=== PATIENT | female | born 1970 | race Asian ===

== ENCOUNTER → 2016-09-28 | Outpatient (CLI) | payer BC, OTHER ==
[~2016-09-28] MED LIST: None per pt
[2016-09-28 14:16] LABS: HEMOGLOBIN 15.1 g/dL (11.7-16.4)
[2016-09-28 14:22] LABS: ASPARTATE AMINO TRANSFERASE 29 U/L (15-37); BLOOD UREA NITROGEN 9 mg/dL (7-18)
== END | disposition home or self-care (01) ==
LOC: STAR 13:17
PROVIDERS: ATTEND Surgery
DX: Z01.818 Encounter for other preprocedural examination (principal)
CPT/HCPCS: 36415; 80053; 83690; 84703; 85025; 85610; 93005

== ENCOUNTER 2016-10-11 06:25 | Day surgery (SDC) | payer BC ==
[2016-09-28 13:41] VITALS: BP 123/80
[~2016-10-11] VITALS: Ht 160 cm; Wt 55.0 kg
[2016-10-11] MEDS ORDERED: BUPIVACAINE/PF-EPI 0.25% 1:200K ONE (06:43)
[2016-10-11] MEDS ORDERED: LIDOCAINE 1%, 2ML ONE (06:52)
[2016-10-11 07:08] LABS: HCG UR OBC PASS
[2016-10-11] MEDS ORDERED: LACTATED RINGERS 1,000 ML IV SCH (07:15)
[2016-10-11] MEDS ORDERED: MIDAZOLAM 1 MG/ML, 2ML ONE (07:29)
[2016-10-11] MEDS ORDERED: FENTANYL PF 250 MCG/5ML ONE (07:29)
[2016-10-11] MEDS ORDERED: LIDOCAINE 1%, 2ML SQ PRN (07:30)
[2016-10-11] MEDS ORDERED: MIDAZOLAM 1 MG/ML, 2ML IV PRN (08:00)
[2016-10-11] MEDS ORDERED: MEPERIDINE/PF 25MG/0.5ML IVPush PRN (08:00)
[2016-10-11] MEDS ORDERED: hydrALAzine 20 MG/ML, 1ML IV PRN (08:00)
[2016-10-11] MEDS ORDERED: PROMETHAZINE 25 MG/ML, 1ML IV PRN (08:00)
[2016-10-11] MEDS ORDERED: ACETAMINOPHEN 325 MG TABLET PO PRN (08:00)
[2016-10-11] MEDS ORDERED: HYDROmorphone 1 MG/ML, 1ML IV PRN (08:00)
[2016-10-11] MEDS ORDERED: ALBUTEROL SULFATE 2.5 MG/3 ML NPPB PRN (08:00)
[2016-10-11] MEDS ORDERED: ONDANSETRON 2MG/ML, 2ML IVPush PRN (08:00)
[2016-10-11] MEDS ORDERED: OXYcodone 5 MG/5 ML ORAL.SOL UDC PO PRN (08:00)
[2016-10-11] MEDS ORDERED: LABETALOL 5MG/ML, 20ML IV PRN (08:00)
[2016-10-11] MEDS ORDERED: FENTANYL PF 100 MCG/2ML ONE (09:09)
[2016-10-11] MEDS ORDERED: OXYcodone 5 MG/5 ML ORAL.SOL UDC ONE (09:09)
[2016-10-11] MEDS ORDERED: ACETAMINOPHEN 650 MG/20.3 ML UDC ONE (09:09)
[2016-10-11] MEDS: FENTANYL PF 100 MCG/2ML IV PRN ×3 (09:15→09:30)
[2016-10-11] MEDS ORDERED: NEOSTIGMINE 1 MG/ML, 10ML ONE (15:56)
[2016-10-11] MEDS ORDERED: GLYCOPYRROLATE 0.2MG/1ML ONE (15:56)
[2016-10-11] MEDS ORDERED: PROPOFOL 10 MG/ML, 20ML ONE (15:56)
[2016-10-11] MEDS ORDERED: ROCURONIUM 10 MG/ML ONE (15:56)
[2016-10-11] MEDS ORDERED: DEXAMETHASONE 4 MG/ML, 1ML ONE (15:56)
[2016-10-11] MEDS ORDERED: ONDANSETRON 2MG/ML, 2ML ONE (15:56)
[2016-10-11] MEDS ORDERED: CEFAZOLIN 1,000 MG ONE (15:56)
[2016-10-11] MEDS ORDERED: NALOXONE 0.4 MG/ML, 1ML ONE (15:56)
[2016-10-11] MEDS ORDERED: SUCCINYLCHOLINE 20 MG/ML, 10ML ONE (15:56)
== END 2016-10-11 12:00 | disposition home or self-care (01) ==
LOC: OUT 06:25
PROVIDERS: ATTEND Surgery
DX: K80.10 Calculus of gallbladder with chronic cholecystitis without obstruction (principal); K82.8 Other specified diseases of gallbladder
CPT/HCPCS: 47562; 81025; 88304; J0330; J0690; J1100; J2250; J2310; J2405; J2704; J2710; J3010; J3490; J7120